=== PATIENT | male | born 1970 | race Caucasian/White ===

== ENCOUNTER 2023-10-29 06:38 | Emergency (ER) | payer SELFPAY ==
[2023-10-29] MEDS: Ondansetron 4 MG/2 ML SDV IVPUSH ONE (06:55)
[2023-10-29] MEDS: Sodium Chloride 0.9% 1,000 ML IV ONE ×3 (06:55→11:14)
[2023-10-29 06:58] LABS: BASOPHILS PERCENT AUTO 0.2 % (0.0-1.0); EOSINOPHILS PERCENT AUTO 0.5 % (1.0-3.0); HEMATOCRIT 43.2 % (40.0-54.0); HEMOGLOBIN 14.6 g/dL (14.0-18.0); LYMPHOCYTES PERCENT AUTO 9.2 % (20.5-50.1); MEAN CORPUSCULAR HEMOGLOBIN 30.5 pg (27.0-34.0); MEAN CORPUSCULAR HGB CONC 33.8 g/dL (33.0-35.0); MEAN CORPUSCULAR VOLUME 90.4 fL (80-100); MONOCYTES PERCENT AUTO 4.7 % (2-8); NEUTROPHILS PERCENT AUTO 85.4 % (42.2-75.2); PLATELET COUNT,PLT 154 10^3/uL (150-450); RED BLOOD CELL COUNT 4.78 10^6/uL (4.6-6.2); WHITE BLOOD CELL COUNT,WBC 12.3 10^3/uL (5.0-10.0)
[2023-10-29] MEDS: Morphine 4 MG/ML Syringe IVPUSH ONE ×2 (06:59→12:17)
[2023-10-29] MEDS: Ketorolac 30 MG/ML SDV IVPUSH ONE (07:01)
[2023-10-29 07:11] LABS: APPEARANCE,URINE CLEAR (CLEAR); BILIRUBIN,URINE NEGATIVE (NEGATIVE); COLOR,URINE YELLOW (YELLOW); GLUCOSE,URINE 100 (NEGATIVE); KETONES,URINE NEGATIVE (NEGATIVE); LEUKOCYTE ESTERASE,URINE NEGATIVE (NEGATIVE); NITRITE,URINE NEGATIVE (NEGATIVE); OCCULT BLOOD,URINE SMALL (NEGATIVE); PH,URINE 5.5 (5.0-9.0); PROTEIN,URINE NEGATIVE (NEGATIVE); UROBILINOGEN,URINE 0.2 mg/dL (0.2-1.0)
[2023-10-29 07:23] LABS: A/G RATIO 1.2; ALBUMIN 4.1 g/dL (3.4-5.0); ANION GAP 13.9 mEq/L (7-13); BILIRUBIN TOTAL 0.1 mg/dL (0.2-1.0); BUN/CREATININE RATIO 18.8 (No establ ref range); CALCIUM 9.2 mg/dL (8.5-10.1); CREATININE 1.33 mg/dL (0.70-1.30); EST CRCL DRUG DOSING (CG) 70.5 mL/min; POTASSIUM,K 3.9 mmol/L (3.5-5.1); PROTEIN TOTAL,TP 7.4 g/dL (6.4-8.2)
[2023-10-29 07:28] LABS: BACTERIA,URINE FEW /HPF (0-FEW/HPF); EPITHELIAL CELLS,URINE FEW /HPF (NOT SEEN); MUCUS,URINE FEW /LPF (NOT SEEN); WBC,URINE 0-5 /HPF (0-5/HPF)
[2023-10-29 07:30] LABS: LACTIC ACID 2.2 mmol/L (0.4-2.0)
[2023-10-29] MEDS: Tamsulosin 0.4 MG Cap.ER PO ONE (07:57)
[2023-10-29] MEDS ORDERED: Naloxone 2 MG/2 ML Syringe IVPUSH PRN (08:03)
[2023-10-29] MEDS: fentaNYL 100 MCG/2 ML SDV IVPUSH ONE ×3 (08:10→10:52)
[2023-10-29] MEDS: Metoclopramide 10 MG/2 ML SDV IVPUSH ONE ×2 (08:22→12:19)
[2023-10-29] MEDS: HYDROmorphone 0.5 MG/0.5 ML Syringe IVPUSH ONE (09:56)
[2023-10-29] MEDS: Magnesium Sulfate/Water Premix 2 GM in Premix Bag 1 BAG IV ONE (12:21)
== END 2023-10-29 13:20 | disposition home or self-care (01) ==
LOC: DL.ED 06:38
DX: N13.2 Hydronephrosis with renal and ureteral calculous obstruction (principal)
CPT/HCPCS: 36415; 74176; 80053; 81001; 83605; 83690; 83735; 84484; 85025; 96361; 96365; 96375; 96376; 99284; A9270; J1170; J1885; J2270; J2405; J2765; J3010; J3475; J7030